=== PATIENT | male | born 1955 | race Caucasian/White ===

== ENCOUNTER 2019-02-14 08:42 | Day surgery (SDC) | payer BC, OTHER ==
[~2019-02-14] VITALS: Ht 177.8 cm; Wt 73.5 kg
[~2019-02-14 08:42] MED LIST: ASPI325T54 PO; BUPR300T34 PO; DILT240C82 PO; HYDR-643 PO; LIDOCAINE 1% MDV 20ML VIAL SQ PRN; LR 1,000 ML IV SCH; NITR0.4S14 SL; PRAV20TA2 PO
[2019-02-14] MEDS ORDERED: ASPIRIN 81 MG CHEW TABLET PO ONE (09:00)
[2019-02-14] MEDS ORDERED: LIDOCAINE 2% INJ 100 MG/5 ML SDV (FOR ANES.) As Ordered ONE (09:08)
[2019-02-14] MEDS ORDERED: ROCURONIUM BROMIDE 50 MG/5 ML VIAL As Ordered ONE (09:08)
[2019-02-14] MEDS ORDERED: PROPOFOL 200 MG/20 ML VIAL As Ordered ONE (09:08)
[2019-02-14] MEDS ORDERED: THROMBIN SOLN 5,000 UNITS VIAL As Ordered ONE (09:09)
[2019-02-14] MEDS ORDERED: CETACAINE SPRAY 5GM As Ordered ONE (09:09)
[2019-02-14] MEDS ORDERED: LIDOCAINE 1% SDV INJ 30 ML VIAL As Ordered ONE (09:09)
[2019-02-14] MEDS ORDERED: ONDANSETRON 4MG/2ML VIAL (J2405) As Ordered ONE (09:09)
[2019-02-14] MEDS ORDERED: EPINEPHrine 1MG/10ML SYRINGE 1.5IN As Ordered ONE (09:09)
[2019-02-14] MEDS ORDERED: dexameTHASONE 4 MG/ML 1ML VIAL (J1100) As Ordered ONE (09:09)
[2019-02-14] MEDS ORDERED: LIDOCAINE VISCOUS 2% SOLN 15ML UDC As Ordered ONE (09:10)
[2019-02-14] MEDS ORDERED: fentaNYL 250 MCG/5 ML INJECTION (J3010) As Ordered ONE (09:10)
[2019-02-14] MEDS ORDERED: MIDAZOLAM INJ 2 MG/2 ML VIAL (J2250) As Ordered ONE (09:10)
[2019-02-14] MEDS ORDERED: LIDOCAINE 1% MDV 20ML VIAL As Ordered ONE (09:11)
[2019-02-14 11:23] VITALS: BP 116/76
--- NOTE | 2019-02-14 11:25 | REP ---
Single view chest: 02/14/2019. Indication: Status post bronchoscopy. Comparison: None. Findings: Left upper lobe opacity along the medial margin is present. There is no pleural effusion or pneumothorax. Chronic interstitial fibrosis is present. Biapical scarring is suspected. The cardiac silhouette is unremarkable. Impression: Left upper lobe opacity status post bronchoscopy without pneumothorax or unexpected findings. Electronically Signed by Kendall Wilson DO 02/14/2019 11:16 A
--- NOTE | 2019-02-14 11:48 | ROOR ---
Patient Name: Philippe Marvin Procedure Date: 02/14/2019 9:48 AM Date of : 1955 Admit Type: Outpatient Age: 63 Room: Main OR Note Status: Finalized Attending MD: Tamiko Lua MD Procedure: Bronchoscopy Indications: Left upper lobe nodule Providers: Tamiko Lua MD (Doctor) Referring MD: 1. No Referring Physician 1. No Referring Physician, Admin. (Referring MD) Requesting Physician: Medicines: General Anesthesia, Cetacaine topical Complications: No immediate complications. Estimated blood loss: Minimal Procedure: Pre-Anesthesia Assessment: - Prior to the procedure, a History and Physical was performed, and patient medications and allergies were reviewed. The patient's tolerance of previous anesthesia was also reviewed. The risks and benefits of the procedure and the sedation options and risks were discussed with the patient. All questions were answered, and informed consent was obtained. Prior Anticoagulants: The patient has taken no previous anticoagulant or antiplatelet agents. ASA Grade Assessment: II - A patient with mild systemic disease. After reviewing the risks and benefits, the patient was deemed in satisfactory condition to undergo the procedure. The Bronchoscope was introduced through the mouth, via the endotracheal tube (the patient was intubated for the procedure) and advanced to the tracheobronchial tree of both lungs. The procedure was accomplished without difficulty. The patient tolerated the procedure well. Findings: Glidescope was used for intubation. During intubation there was an area of white/rushing asymmetric possible lesion on right side base of tongue in vallecula. The endotracheal tube is in good position. The visualized portion of the trachea is of normal caliber. The hossein is sharp. The tracheobronchial tree was examined to at least the first subsegmental level. Bronchial anatomy was normal; there are no endobronchial lesions, the bronchial mucosa showed some pitting and webbing. There were some thick white-yellow secretions in the right lower lobe and lesser degree in left lower lobe. Electromagnetic navigation bronchoscopy utilizing the [employer] system with iLogic upgrade was performed. The CT scan was used for planning purposes. A virtual bronchoscopic image was generated using the planning software and the hossein, left main bronchus hossein, left lower lobe basilar segment, right upper lobe, right middle lobe and right lower lobe basilar segment registration points were marked on the virtual image. The target in the apical-posterior segment of the left upper lobe was marked. A nodule 1 cm in size was found and a pathway was created. After a complete airway exam, the locatable guide/extended working channel was inserted and an automatic registration was performed by advancing the scope through the hossein, left main bronchus hossein, left lower lobe basilar segment, right upper lobe, right middle lobe and right lower lobe basilar segment. The navigation phase was then begun to locate the target lesion(s). Positioning was confirmed using fluoroscopy and off-center (in relation to the lesion) was confirmed using the Olympus radial probe US catheter. The locatable guide was removed from the extended working channel. Fluoroscopy guided transbronchial brushings of a nodule were obtained in the apical-posterior segment of the left upper lobe with a needle brush and sent for routine cytology. Transbronchial brushing technique was selected because the sampling site was not visible endoscopically. Transbronchial needle aspirations of a nodule were performed in the apical-posterior segment of the left upper lobe GenCut and sent for routine cytology. The procedure was guided by fluoroscopy. Transbronchial needle aspiration technique was selected because the sampling site was not visible endoscopically. Transbronchial biopsies of a nodule were performed in the apical-posterior segment of the left upper lobe using forceps and sent for histopathology examination. The procedure was guided by fluoroscopy. Transbronchial biopsy technique was selected because the sampling site was not visible endoscopically. Bronchoalveolar lavage was performed in the TATA apical posterior segments (B1 & B2) of the lung and sent for routine cytology. The return was bloody. Percepta brush testing was performed in right main stem bronchi and samples were packaged and sent for testing at outside facility. Impression: - Left upper lobe nodule - The airway examination was normal. - Electromagnetic navigation bronchoscopy was performed. - Transbronchial brushings were obtained. - A transbronchial needle aspiration was performed. - Transbronchial lung biopsies were performed. - Bronchoalveolar lavage was performed. Recommendation: - Follow up with bronchoscopist as previously scheduled. Attending Participation: I personally performed the entire procedure. Tamiko Lua MD 02/14/2019 11:47:37 AM Number of Addenda: 0 Note Initiated On: 02/14/2019 9:48 AM
--- NOTE | 2019-02-14 17:20 | ECGEPIP ---
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
== END 2019-02-14 11:55 | disposition home or self-care (01) ==
LOC: M SDC 08:42
PROVIDERS: ATTEND Internal Medicine Pulmonary Disease
DX: C34.12 Malignant neoplasm of upper lobe, left bronchus or lung (principal); C34.32 Malignant neoplasm of lower lobe, left bronchus or lung; I25.10 Atherosclerotic heart disease of native coronary artery without angina pectoris; I10 Essential (primary) hypertension; I25.2 Old myocardial infarction; J43.9 Emphysema, unspecified; E78.5 Hyperlipidemia, unspecified; F41.9 Anxiety disorder, unspecified; N40.0 Benign prostatic hyperplasia without lower urinary tract symptoms; M54.5 Low back pain; G89.29 Other chronic pain; B35.1 Tinea unguium; G43.909 Migraine, unspecified, not intractable, without status migrainosus; G47.33 Obstructive sleep apnea (adult) (pediatric); Z79.899 Other long term (current) drug therapy; Z79.82 Long term (current) use of aspirin; Z87.442 Personal history of urinary calculi; Z87.891 Personal history of nicotine dependence; Z95.5 Presence of coronary angioplasty implant and graft; Z92.3 Personal history of irradiation
CPT/HCPCS: 31623; 31624; 31627; 31628; 31629; 71045; 76000; 88104; 88108; 88173; 88305; 88313; 93005; J1100; J2250; J2405; J3010

== ENCOUNTER → 2019-03-09 | Outpatient (CLI) | payer BC, OTHER ==
[~2019-03-09] MED LIST changes: -BUPR300T34 PO; +BUPR300T92 PO; -LIDOCAINE 1% MDV 20ML VIAL SQ PRN; -LR 1,000 ML IV SCH
--- NOTE | 2019-03-12 09:45 | REP ---
INDICATION: Neoplasm of uncertain behavior PROCEDURE: CT neck with contrast. COMPARISON STUDIES: No prior similar studies FINDINGS: Rounded cervical chain lymph nodes seen in the posterior triangle on the right which are not enlarged, no evidence of lymphadenopathy. Oropharynx, nasopharynx, hypopharynx and larynx appear unremarkable. Thyroid glands appear unremarkable. Lung apices demonstrate cystic changes. In the area of the tongue, no definite mass lesion or abnormalities seen. Paranasal sinuses are clear. Dental hardware somewhat limits evaluation with metallic streak artifact. Paranasal sinuses and mastoid air cells are clear. Degenerative disc disease is moderate. There is no definite evidence of high-grade canal or foraminal stenosis although osteophytes narrow the foramen, greater on the right. Atherosclerotic changes seen of the head near the origin of the carotid bifurcation bilaterally. Common and internal carotid arteries are widely patent. IMPRESSION: 1. Rounded cervical chain lymph nodes seen on the right which are not enlarged. No evidence of lymphadenopathy. 2. Limited evaluation of the tongue reveals no specific lesion. 3. Degenerative changes as described. Electronically Signed by Sanket Rubio MD 03/12/2019 09:36 A
== END ==
LOC: M RAD 18:14
PROVIDERS: ATTEND Otolaryngology
DX: D37.02 Neoplasm of uncertain behavior of tongue (principal)

== ENCOUNTER → 2019-03-09 | Outpatient (CLI) | payer BC, OTHER ==
[~2019-03-09] MED LIST changes: +ISOVUE-370 76% 100ML VIAL (Q9967) As Ordered ONE
--- NOTE | 2019-03-12 02:02 | REP ---
Clinical: Malignancy. Technique: Axial contrast enhanced images from the thoracic inlet to the upper abdomen with coronal and sagittal re-formations using 100 ml Isovue 370 intravenous contrast material. Comparison: 01/10/2019. Findings: 1 cm mass along the posterior left upper lobe (image 23) is unchanged compared to prior examination. Diffuse chronic emphysematous disease and age-related interstitial changes are again noted. No further area of mass, nodule or consolidation. No pleural effusion. No pneumothorax. Tracheobronchial tree is patent. No obvious axillary, hilar, or mediastinal adenopathy is appreciated. Ascending thoracic aorta measures 4.4 cm maximal diameter without evidence for dissection and atherosclerotic changes to the aorta and coronary arteries are again noted. No cardiomegaly or pericardial effusion. Impression: 1. The 1 cm mass in the posterior left upper lobe is unchanged compared to 01/10/2019. 2. No adenopathy, further consolidation, nodule or mass lesion. Electronically Signed by Dean Valladares MD 03/12/2019 01:53 A
== END ==
LOC: M RAD 18:24
PROVIDERS: ATTEND Thoracic Surgery (Cardiothoracic Vascular Surgery)
DX: C34.12 Malignant neoplasm of upper lobe, left bronchus or lung (principal)
CPT/HCPCS: 71260; Q9967

== ENCOUNTER → 2019-03-29 | Outpatient (CLI) | payer BC, OTHER ==
[~2019-03-29] MED LIST changes: -ISOVUE-370 76% 100ML VIAL (Q9967) As Ordered ONE; +PROHANCE 279.3MG/ML 15ML VIAL (A9576) As Ordered ONE
[2019-03-29 14:14] LABS: HEMATOCRIT 42.4 % (42.0-52.0); HEMOGLOBIN 14.4 g/dl (13.5-17.5); MEAN CORPUSCULAR HEMOGLOBIN 31.4 pg (27.0-33.0); MEAN CORPUSCULAR VOLUME 92.6 fl (80.0-96.0); PLATELET COUNT, AUTOMATED 224 10^3/uL (150-450); RED BLOOD COUNT 4.58 10^6/uL (4.30-6.10)
[2019-03-29 14:25] LABS: INR 1.05; PROTHROMBIN TIME 13.4 SECONDS (11.8-14.0)
[2019-03-29 14:26] LABS: PARTIAL THROMBOPLASTIN TIME 24.3 SECONDS (25.0-38.4)
[2019-03-29 14:36] LABS: ABG BASE EXCESS 2.3 (-2.0-2.0); ABG HCO3 25.9 MEQ/L (22.0-26.0); ABG O2 SATURATION 94.8 % (95.0-99.0); ABG PARTIAL PRESSURE CO2 36.8 mmHg (35.0-45.0); ABG PARTIAL PRESSURE O2 72.1 mmHg (75.0-100.0); ABG STANDARD HCO3 26.5 MEQ/L (22.0-26.0); ABG pH (ARTERIAL) 7.465 UNITS (7.350-7.450)
[2019-03-29 14:39] LABS: CALCIUM LEVEL 9.5 MG/DL (8.8-10.2); CREATININE FOR GFR 1.44 MG/DL (0.70-1.30); GLOMERULAR FILTRATION RATE 52.9 (>49); POTASSIUM SERUM 3.9 MEQ/L (3.5-5.1)
[2019-03-29 15:17] LABS: AMORPHOUS SEDIMENT SMALL (NEGATIVE); APPEARANCE, URINE HAZY (CLEAR); BACTERIA, URINE AUTO NEGATIVE (NEGATIVE); BILIRUBIN, URINE AUTO NEGATIVE (NEGATIVE); BLOOD, URINE BLOOD NEGATIVE (NEGATIVE); COLOR, URINE YELLOW (YELLOW); GLUCOSE, URINE (UA) AUTO 1+ mg/dL (NEGATIVE); KETONE, URINE AUTO NEGATIVE (NEGATIVE); LEUKOCYTE ESTERASE, URINE AUTO NEGATIVE (NEGATIVE); MUCUS, URINE SMALL (NEGATIVE); NITRITE, URINE AUTO NEGATIVE (NEGATIVE); PROTEIN, URINE AUTO NEGATIVE (NEGATIVE); RBC, URINE AUTO 0 /HPF (0-3); SPECIFIC GRAVITY URINE AUTO 1.016 (1.002-1.035); SQUAMOUS EPITHELIAL CELL UR AU 0 /HPF (0-6); UROBILINOGEN, URINE AUTO 0.2 mg/dL (0.0-2.0); WBC, URINE AUTO 2 /HPF (0-3)
--- NOTE | 2019-03-29 15:19 | REP ---
CHEST, TWO VIEWS: COMPARISON: 02/14/2019 Two views of the chest are performed. No new infiltrate is seen. The lungs are unchanged in appearance. The heart is normal in size. Mediastinal silhouette is unchanged with mild calcification and tortuosity of the thoracic aorta. There are mild degenerative changes of the spine. IMPRESSION: No acute changes. Electronically Signed by Tyrone Ta MD 03/30/2019 12:35 P
--- NOTE | 2019-03-30 00:58 | ECGEPIP ---
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 NO SIGNIFICANT CHANGES Electronically Signed on 03-30-2019 0:58:03 EST by Juan Carmona
== END ==
LOC: M ADMPAT 13:47
PROVIDERS: ATTEND Thoracic Surgery (Cardiothoracic Vascular Surgery)
DX: C34.92 Malignant neoplasm of unspecified part of left bronchus or lung (principal)

== ENCOUNTER → 2019-03-30 | Outpatient (CLI) | payer BC, OTHER ==
[~2019-03-30] MED LIST changes: -PROHANCE 279.3MG/ML 15ML VIAL (A9576) As Ordered ONE
--- NOTE | 2019-03-30 15:23 | REPVR ---
PROCEDURE INFORMATION: Exam: MR Head Without and With Contrast Exam date and time: 03/30/2019 3:07 PM Age: 63 years old Clinical indication: Condition or disease; History of cancer (specify primary cancer site): ; Patient HX: HX lung CA h/a; Additional info: Mal lung CA, R/O mets TECHNIQUE: Imaging protocol: MR of the head without and with intravenous contrast. Contrast material: PROHANCE; Contrast volume: 15 ml; Contrast route: 22G ANGIO; COMPARISON: None available. FINDINGS: Brain: There is no extra-axial collection or intra-axial mass. Mild diffuse volume loss is within the range of normal for patient age. There are scattered foci of T2/FLAIR hyperintensity within the periventricular and subcortical white matter and substance of the narda, nonspecific but typically small-vessel ischemia in this age group. There is no diffusion restriction. There is no abnormal enhancement within the brain. Ventricles: Normal. No ventriculomegaly. Bones/joints: Unremarkable. Soft tissues: Unremarkable. Sinuses: Normal as visualized. No acute sinusitis. Mastoid air cells: Normal as visualized. No mastoid effusion. Orbits: Unremarkable. IMPRESSION: No acute findings. Electronically signed by: Lata Damon On 03/30/2019 15:24:11 PM
== END ==
LOC: M PLARAD 13:26
PROVIDERS: ATTEND Thoracic Surgery (Cardiothoracic Vascular Surgery)
DX: C34.92 Malignant neoplasm of unspecified part of left bronchus or lung (principal)

== ENCOUNTER 2019-04-06 06:51 | Inpatient (IN) | payer BC, OTHER ==
[2019-04-06] VITALS (7 sets, daily range): BP systolic 104–147; BP diastolic 61–100; O2SAT 98
[~2019-04-06] VITALS: Ht 177.8 cm; Wt 84.9 kg
[~2019-04-06 06:51] MED LIST changes: +LR 1,000 ML IV ONE; +MUPIROCIN 2% OINT 22 GM TUBE TOP ONE; +ceFAZolin SOD 2 GM in IV 1 EA IV ONE
[2019-04-06] MEDS ORDERED: CETACAINE SPRAY 5GM As Ordered ONE (06:58)
[2019-04-06] MEDS ORDERED: BUPIVACAINE HCL 0.5% 10 ML VIAL As Ordered ONE (06:58)
[2019-04-06] MEDS ORDERED: BUPIVACAINE LIPOSOME/PF 1.3% 20ML VIAL (13.3MG/ML)(EXPAREL)(C9290 PER1MG) As Ordered ONE (06:58)
[2019-04-06] MEDS ORDERED: ROCURONIUM BROMIDE 50 MG/5 ML VIAL As Ordered ONE ×3 (07:28→10:41)
[2019-04-06] MEDS ORDERED: LIDOCAINE 2% INJ 100 MG/5 ML SDV (FOR ANES.) As Ordered ONE (07:28)
[2019-04-06] MEDS ORDERED: propofoL 200 MG/20 ML VIAL As Ordered ONE (07:28)
[2019-04-06] MEDS ORDERED: METOCLOPRAMIDE INJ 10MG/2ML VIAL (J2765) As Ordered ONE (07:28)
[2019-04-06] MEDS ORDERED: fentaNYL 250 MCG/5 ML INJECTION (J3010) As Ordered ONE (07:28)
[2019-04-06] MEDS ORDERED: MIDAZOLAM INJ 2 MG/2 ML VIAL (J2250) As Ordered ONE ×2 (07:28→07:51)
[2019-04-06] MEDS ORDERED: dexameTHASONE 4 MG/ML 1ML VIAL (J1100) As Ordered ONE (07:28)
[2019-04-06] MEDS ORDERED: SUGAMMADEX SODIUM 500 MG/5 ML VIAL (BRIDION) As Ordered ONE (07:28)
[2019-04-06] MEDS ORDERED: ONDANSETRON 4MG/2ML VIAL (J2405) As Ordered ONE (07:28)
[2019-04-06] MEDS ORDERED: BUPIVACAINE HCL 0.25% 30 ML VIAL As Ordered ONE (07:28)
[2019-04-06] MEDS ORDERED: fentaNYL 100 MCG/2 ML INJECTION (J3010) As Ordered ONE (07:51)
[2019-04-06] MEDS ORDERED: LIDOCAINE 5% OINT 30 GM As Ordered ONE (08:52)
[2019-04-06] MEDS: MOM 30ML SUSPENSION UDC PO SCH (09:00)
[2019-04-06] MEDS: PANTOPRAZOLE 40MG TAB (PROTONIX) PO SCH (09:00)
[2019-04-06] MEDS ORDERED: LABETALOL HCL 100 MG/20 ML VIAL As Ordered ONE (09:39)
[2019-04-06] MEDS ORDERED: EPIDURAL/PCA KEYS XX PRN (09:45)
[2019-04-06] MEDS ORDERED: MIDAZOLAM INJ 2 MG/2 ML VIAL (J2250) IV PRN (09:45)
[2019-04-06] MEDS ORDERED: ONDANSETRON 4MG/2ML VIAL (J2405) IV PRN ×3 (09:45→12:45)
[2019-04-06] MEDS ORDERED: NALOXONE INJ 0.4 MG/1 ML VIAL (J2310) IV PRN (09:45)
[2019-04-06] MEDS ORDERED: METOCLOPRAMIDE INJ 10MG/2ML VIAL (J2765) IV PRN ×2 (09:45→12:45)
[2019-04-06] MEDS ORDERED: WALLBOXKEY XX PRN (09:45)
[2019-04-06] MEDS ORDERED: fentaNYL 100 MCG/2 ML INJECTION (J3010) IV PRN (09:45)
[2019-04-06] MEDS ORDERED: diphenhydrAMINE INJ 50MG/ML VIAL (J1200) IV PRN (09:45)
[2019-04-06] MEDS ORDERED: ePHEDrine SULFATE 25 MG/5 ML(5MG/ML) SYRINGE As Ordered ONE ×2 (09:55→10:10)
[2019-04-06] MEDS ORDERED: PHENYLephrine HCL 500 MCG/5 ML (100MCG/ML) SYRINGE (J2370) As Ordered ONE ×2 (10:10→12:03)
[2019-04-06] MEDS ORDERED: ACETAMINOPHEN 1000MG 100ML IV BTL (OFIRMEV) (J0131 PER 10MG) As Ordered ONE (12:07)
[2019-04-06] MEDS ORDERED: KCL 20MEQ IN D5/0.9%NACL 1000 ML As Ordered ONE (12:29)
[2019-04-06] MEDS ORDERED: NORCO, ANEXSIA 5/325MG TABLET (HYDROcodone/ACETAMINOPHEN) PO PRN (12:30)
[2019-04-06] MEDS ORDERED: ACETAMINOPHEN TAB 650MG DOSE (2X325MG) PO PRN (12:30)
[2019-04-06] MEDS ORDERED: BISACODYL 10 MG SUPP PR PRN (12:30)
[2019-04-06] MEDS ORDERED: LEVALBUTEROL 1.25 MG/0.5 ML CONCENTRATE NEB NEB PRN (12:30)
[2019-04-06] MEDS ORDERED: LR 1,000 ML IV SCH (12:45)
[2019-04-06] MEDS ORDERED: PERCOCET 5MG/325MG TAB PO PRN (12:45)
[2019-04-06] MEDS: FENTANYL/BUPIVACAINE/NACL BAG 250 ML EPIDURAL SCH (12:50)
[2019-04-06 12:55] LABS: ABG BASE EXCESS -4.1 (-2.0-2.0); ABG HCO3 21.2 MEQ/L (22.0-26.0); ABG O2 SATURATION 95.8 % (95.0-99.0); ABG PARTIAL PRESSURE CO2 39.8 mmHg (35.0-45.0); ABG PARTIAL PRESSURE O2 86.2 mmHg (75.0-100.0); ABG STANDARD HCO3 21.1 MEQ/L (22.0-26.0); ABG TOTAL CO2 22.5 MEQ/L (23.0-31.0); ABG pH (ARTERIAL) 7.345 UNITS (7.350-7.450)
[2019-04-06 12:59] LABS: BASO % 0.3 % (0.0-1.0); EOS % 0.2 % (0.0-3.0); HEMATOCRIT 39.6 % (42.0-52.0); LYMPH # 0.6 10^3/uL (1.5-5.0); LYMPH % 5.7 % (24.0-44.0); MEAN CORPUSCULAR HEMOGLOBIN 31.1 pg (27.0-33.0); MEAN CORPUSCULAR HGB CONC 32.8 g/dl (32.0-36.5); MEAN CORPUSCULAR VOLUME 94.7 fl (80.0-96.0); MONO # 0.3 10^3/uL (0.0-0.8); MONO % 2.4 % (0.0-5.0); NEUTROPHILS # 9.4 10^3/uL (1.5-8.5); NEUTROPHILS % 90.9 % (36.0-66.0); PLATELET COUNT, AUTOMATED 229 10^3/uL (150-450); RED BLOOD COUNT 4.18 10^6/uL (4.30-6.10); WHITE BLOOD COUNT 10.3 10^3/uL (4.0-10.0)
[2019-04-06] MEDS: KCL 20MEQ IN D5/NS 1000ML 1,000 ML IV SCH (13:00)
--- NOTE | 2019-04-06 13:02 | REP ---
Portable chest x-ray: Single view. History: Status post segmentectomy left lung. Comparison chest x-ray March 29, 2019. Comparison chest CT study 10 March 19, 2019. Findings: There are two left chest tubes in place both which terminate near the apex. There is mild subcutaneous emphysema along the left lateral chest wall in the extrathoracic soft tissues. There is no visible pneumothorax. There is subtle parenchymal opacity adjacent to the more medial of the two chest tubes in the apex of the left lung. Epidural catheter and EKG monitoring electrodes are seen. The right lung remains clear. Impression: Postoperative changes, two left chest tubes in place. Electronically Signed by Sen Jones MD 04/06/2019 12:53 P
[2019-04-06] MEDS: KETOROLAC 30 MG/ML VIAL (J1885) IV SCH ×2 (13:08→17:45)
[2019-04-06] MEDS: fentaNYL 100 MCG/2 ML INJECTION (J3010) IV PRN ×4 (13:08→13:31)
[2019-04-06 13:22] LABS: BLOOD UREA NITROGEN 20 MG/DL (7-18); CALCIUM LEVEL 7.5 MG/DL (8.8-10.2); CARBON DIOXIDE LEVEL 22 MEQ/L (21-32); CHLORIDE LEVEL 110 MEQ/L (98-107); CREATININE FOR GFR 1.26 MG/DL (0.70-1.30); GLOMERULAR FILTRATION RATE > 60.0 (>49); GLUCOSE, FASTING 110 MG/DL (70-100); POTASSIUM SERUM 4.7 MEQ/L (3.5-5.1); SODIUM LEVEL 139 MEQ/L (136-145)
[2019-04-06] MEDS: LEVALBUTEROL 1.25 MG/0.5 ML CONCENTRATE NEB NEB SCH ×2 (14:00→19:57)
--- NOTE | 2019-04-06 14:10 | RO ---
DATE OF PROCEDURE: 04/06/2019 PREPROCEDURE DIAGNOSIS: Small cell carcinoma left upper lobe, posterior segment, clinical stage IA. POSTPROCEDURE DIAGNOSIS: Small cell carcinoma left upper lobe, posterior segment, clinical stage IA. PROCEDURE: Posterior upper lobe segmentectomy, five level rib block, bronchoscopy and mediastinal lymphadenectomy. SURGEON: Eder Pruitt MD DIRECTOR OF CORPORATE SPONSORSHIPS: ANESTHESIA: FINDINGS: Bronchoscopy revealed a normal branching tracheobronchial tree. There were no endobronchial lesions. The thoracotomy showed a nearly incomplete fused fissure. I spent approximately an hour and a half trying to find the pulmonary artery within the fissure and posteriorly. I did get into the pulmonary artery posteriorly. Considering this was small cell carcinoma and a peripheral lesion and very small, 1 cm, and that he was committed to chemotherapy, II decided to undertake a large nonanatomic segmentectomy. Pathology showed no lymphangitic spread in the surrounding tissue to the tumor. I was therefore content to stop at a segmentectomy and not perform the lobectomy as we had already gotten into difficulties with pulmonary artery bleeding. PROCEDURE: Under satisfactory general anesthesia and a single lumen tube endotracheal intubation, bronchoscope was placed into the tracheobronchial tree. Each segment and subsegment were thoroughly inspected and there were no endobronchial lesions. There were some thick secretions, which were suction aspirated. The patient was then turned into the right lateral decubitus position and prepped and draped in the usual sterile fashion. Posterolateral thoracotomy incision was made. The latissimus dorsi was divided and a slip of serratus was divided. The chest was entered at the fifth intercostal space. Inspection revealed a very incomplete fissure, almost rudimentary. I therefore started to dissect the fissure, but to no avail as far as getting to the pulmonary artery. The posterior mediastinal pleura was then incised. The pulmonary artery was found without much difficulty and the remainder of the mediastinal pleura and adventitial tissue was removed from the pulmonary artery. Dissection was then started posteriorly to anteriorly to try to expose the fissure. Using the pulmonic scalpel with the inactive jaw towards the pulmonary artery, the lung tissue was divided. This was still rather awkward and difficult. After one pass of the underlying scalpel, a large amount of bleeding was encountered. This was oversewn eventually with #4-0 Prolene suture in a figure-of-8 fashion. This controlled the hemorrhage. At that point, the decision to move forward with a very difficulty interlobar dissection was reconsidered. The patient was not going to escape chemotherapy in any case because this is a small cell carcinoma, and the goal of the resection was to achieve local control. Therefore, a very large wedge segment of the posterior segment was undertaken leading the staler down towards the hilum. A large wedge resection along the segmental markings was completed without difficulty and the specimen was then taken to pathology. I personally took the specimen to pathology and the pathologist and myself reviewed peripheral cut sections and there was no evidence of lymphangitic spread or interstitial spread away from the tumor. The tumor was quite demarcated. The mediastinal pleura over the aorta and left pulmonary artery was then incised and there were found to be very few nodes, most on the pulmonary artery and these were removed and sent for pathological examination. There was an extensive lysis of adhesions in the cupula from his prior bullous disease. These were lysed sharply with the electrocautery to free the entire lung up for clear inspection. Two chest tubes were placed, one 24 curved and one 24 straight, posteriorly and anteriorly respectively. A five level rib block consisting of Exparel and Marcaine was then instilled. TISSEEL was applied to the dissection planes. The ribs were then reapproximated by use of #1 Prolene figure-of-8 pericostal sutures. The extrathoracic muscles by use of running #0 Vicryl sutures and the subcutaneous tissue by use of #3-0 Vicryl suture and the skin by use of #3-0 Monocryl subcuticular suture. The patient tolerated the procedure well and left the operating room in satisfactory condition for the recovery room. ESTIMATED BLOOD LOSS: 100 mL. MTDD
[2019-04-06] MEDS: ceFAZolin SOD 1 GM in D5W MINI-BAG PLUS 50 ML IV SCH (17:05)
[2019-04-06] MEDS: DOCUSATE SODIUM 100 MG CAP PO SCH (20:28)
[2019-04-06] MEDS: HEPARIN SOD (PORCINE) 5000 UNITS/ML VIAL (J1644 PER 1000UNITS) SC SCH (20:29)
[2019-04-06] MEDS ORDERED: MOM 30ML SUSPENSION UDC PO ONE (21:00)
[2019-04-07] VITALS: BP 126/79
[2019-04-07] MEDS: ceFAZolin SOD 1 GM in D5W MINI-BAG PLUS 50 ML IV SCH ×3 (00:13→17:14)
[2019-04-07] MEDS: KCL 20MEQ IN D5/NS 1000ML 1,000 ML IV SCH (00:14)
[2019-04-07] MEDS: KETOROLAC 30 MG/ML VIAL (J1885) IV SCH ×4 (00:14→17:40)
[2019-04-07 03:48] VITALS: O2SAT 98
[2019-04-07] MEDS: LEVALBUTEROL 1.25 MG/0.5 ML CONCENTRATE NEB NEB SCH ×4 (03:48→20:19)
[2019-04-07 04:00] VITALS: BP 125/79
[2019-04-07 05:10] LABS: BASO % 0.1 % (0.0-1.0); HEMATOCRIT 39.1 % (42.0-52.0); LYMPH # 0.8 10^3/uL (1.5-5.0); LYMPH % 6.9 % (24.0-44.0); MEAN CORPUSCULAR HEMOGLOBIN 31.3 pg (27.0-33.0); MEAN CORPUSCULAR HGB CONC 33.2 g/dl (32.0-36.5); MEAN CORPUSCULAR VOLUME 94.2 fl (80.0-96.0); MONO # 1.3 10^3/uL (0.0-0.8); NEUTROPHILS # 9.5 10^3/uL (1.5-8.5); NEUTROPHILS % 81.7 % (36.0-66.0); PLATELET COUNT, AUTOMATED 229 10^3/uL (150-450); RED BLOOD COUNT 4.15 10^6/uL (4.30-6.10); WHITE BLOOD COUNT 11.7 10^3/uL (4.0-10.0)
[2019-04-07 05:31] LABS: BLOOD UREA NITROGEN 18 MG/DL (7-18); CALCIUM LEVEL 8.2 MG/DL (8.8-10.2); CARBON DIOXIDE LEVEL 26 MEQ/L (21-32); CHLORIDE LEVEL 102 MEQ/L (98-107); CREATININE FOR GFR 1.12 MG/DL (0.70-1.30); GLOMERULAR FILTRATION RATE > 60.0 (>49); GLUCOSE, FASTING 115 MG/DL (70-100); POTASSIUM SERUM 4.3 MEQ/L (3.5-5.1); SODIUM LEVEL 135 MEQ/L (136-145)
[2019-04-07 05:39] LABS: ABG BASE EXCESS -0.6 (-2.0-2.0); ABG HCO3 22.6 MEQ/L (22.0-26.0); ABG O2 SATURATION 94.9 % (95.0-99.0); ABG PARTIAL PRESSURE O2 70.7 mmHg (75.0-100.0); ABG STANDARD HCO3 23.9 MEQ/L (22.0-26.0); ABG TOTAL CO2 23.6 MEQ/L (23.0-31.0); ABG pH (ARTERIAL) 7.454 UNITS (7.350-7.450)
--- NOTE | 2019-04-07 08:42 | REP ---
Clinical: Status post left pulmonary segmentectomy. Technique: PA and lateral. Comparison: 04/06/2019. Findings: Two left-sided chest tubes in stable position at the apex. Small left apical pneumothorax. Subtle scattered lower lobe air space disease cannot be excluded. No discrete focal consolidation. No obvious effusion. Mediastinum and cardiac silhouette are normal. Impression: 1. Postsurgical changes to the left hemithorax including small left pneumothorax. 2. Chronic changes versus a vague subtle bilateral air space disease. Electronically Signed by Dean Valladares MD 04/07/2019 08:33 A
[2019-04-07] MEDS: MOM 30ML SUSPENSION UDC PO SCH (09:49)
[2019-04-07] MEDS: ASPIRIN 325 MG TAB PO SCH (09:50)
[2019-04-07] MEDS: buPROPion **XL** TABLET 150MG (WELLBUTRIN XL) PO SCH (09:50)
[2019-04-07] MEDS: PANTOPRAZOLE 40MG TAB (PROTONIX) PO SCH (09:50)
[2019-04-07] MEDS: PRAVASTATIN 20 MG TAB PO SCH (09:51)
[2019-04-07] MEDS: DOCUSATE SODIUM 100 MG CAP PO SCH ×2 (09:51→20:18)
[2019-04-07] MEDS: HEPARIN SOD (PORCINE) 5000 UNITS/ML VIAL (J1644 PER 1000UNITS) SC SCH ×2 (09:52→20:19)
[2019-04-07] MEDS: FENTANYL/BUPIVACAINE/NACL BAG 250 ML EPIDURAL SCH (11:33)
[2019-04-07] MEDS ORDERED: FUROSEMIDE 40 MG/4 ML VIAL (J1940) IV ONE (13:00)
--- NOTE | 2019-04-07 18:05 | IPN ---
DATE: 04/07/2019 This is the first postoperative day for Mr. Marvin. He is having some trouble with pain control, but it does respond to boluses of the epidural. I have had a long discussion with him in regard to the operative findings yesterday and what we did yesterday. Final pathology is still pending. His vital signs show a maximum temperature (t-max) of 98.6 with a heart rate that ranges between 85 and 93 in a sinus rhythm, respiratory rate of 16 to 18 with the use of accessory muscles, who is 98% saturated on 2 liters nasal cannula and 91% saturated on room air. Blood pressure is ranging between 126/79 to 120/74. His intake and output the past 24 hours has been recorded as 4140 in and 1750 out for a positivity of 2390 mL. He has put out 320 mL from the chest tube and there is a small air leak. Urine output is 1330 mL. Weight today is 88.5 kg compared to 87.7 kg yesterday. PHYSICAL EXAMINATION: LUNGS: He has some inspiratory rales and crackles on the left side. Percussion note is full to the diaphragm. CARDIAC EXAM: Without murmurs, clicks, gallops or rubs. I cannot feel his point of maximum impulse (PMI). S1, S2 are normal. ABDOMEN: Soft, nontender. Bowel sounds positive. There is no hepatomegaly. No costovertebral angle tenderness. EXTREMITIES: Show no pretibial edema. No calf tenderness. No differential swelling of the upper extremities. SKIN: Warm, dry and perfused without cyanosis or mottling, including that of the nail beds and knees. NECK: Supple. There is no jugular venous distention. No subcutaneous emphysema. Trachea is midline. MOUTH: Shows his mucous membranes to be pink and moist. Lips and commissures without lesions. There is no thrush. EYES: Show his pupils to be equal and reactive. Extraocular motion intact. Sclerae anicteric. NEUROLOGIC: Shows II through XII intact with gross motor and gross sensation intact. Gait is not tested. PSYCHIATRIC: Shows him to be awake and alert, oriented times three with appropriate mood and affect and conversational. LABORATORY DATA His white count today is 11.7 with a hemoglobin and hematocrit of 13.0 and 39.1, essentially unchanged from yesterday with a platelet count of 229. Differential shows 81% neutrophils, 6% lymphocytes, 11% monocytes. There are no immature forms and toxic granulations. His electrolytes are essentially normal with a BUN and creatinine of 18 and 1.12, glucose 115, calcium 82. Blood gas this morning showed a pH of 7.45, pCO2 of 33, pO2 of 70 and a base excess of -0.06. His chest x-ray today shows his lung fully expanded to the chest wall. Costophrenic angles are sharp and there are no infiltrates. Chest tubes are in good place. There are no posterior infiltrates on the lateral film. IMPRESSION: 1. Small cell carcinoma, status post segmentectomy and mediastinal lymphadenectomy. 2. Hypertension. PLAN/DISCUSSION: I will keep his chest tube on suction today. I will transfer him the progressive care unit (PCU) today. I will also diurese him.
[2019-04-07 20:00] VITALS: BP 144/82
[2019-04-08] VITALS (11 sets, daily range): BP systolic 117–138; BP diastolic 62–80
[2019-04-08] MEDS: KETOROLAC 30 MG/ML VIAL (J1885) IV SCH ×5 (00:11→23:27)
[2019-04-08] MEDS: ceFAZolin SOD 1 GM in D5W MINI-BAG PLUS 50 ML IV SCH ×2 (00:17→09:15)
[2019-04-08] MEDS: LEVALBUTEROL 1.25 MG/0.5 ML CONCENTRATE NEB NEB SCH ×4 (01:21→19:34)
[2019-04-08 04:35] LABS: BASO % 0.3 % (0.0-1.0); EOS # 0.1 10^3/uL (0.0-0.5); EOS % 0.9 % (0.0-3.0); HEMOGLOBIN 12.5 g/dl (13.5-17.5); LYMPH # 1.5 10^3/uL (1.5-5.0); LYMPH % 15.8 % (24.0-44.0); MEAN CORPUSCULAR HEMOGLOBIN 31.3 pg (27.0-33.0); MEAN CORPUSCULAR HGB CONC 32.9 g/dl (32.0-36.5); MONO # 0.8 10^3/uL (0.0-0.8); MONO % 8.2 % (0.0-5.0); NEUTROPHILS # 6.8 10^3/uL (1.5-8.5); NEUTROPHILS % 74.1 % (36.0-66.0); PLATELET COUNT, AUTOMATED 204 10^3/uL (150-450); WHITE BLOOD COUNT 9.2 10^3/uL (4.0-10.0)
[2019-04-08 04:59] LABS: BLOOD UREA NITROGEN 19 MG/DL (7-18); CALCIUM LEVEL 7.9 MG/DL (8.8-10.2); CARBON DIOXIDE LEVEL 28 MEQ/L (21-32); CHLORIDE LEVEL 104 MEQ/L (98-107); CREATININE FOR GFR 1.06 MG/DL (0.70-1.30); GLOMERULAR FILTRATION RATE > 60.0 (>49); GLUCOSE, FASTING 99 MG/DL (70-100); SODIUM LEVEL 137 MEQ/L (136-145)
[2019-04-08] MEDS: FENTANYL/BUPIVACAINE/NACL BAG 250 ML EPIDURAL SCH (06:39)
--- NOTE | 2019-04-08 08:18 | REP ---
Clinical: Status post left pulmonary segmentectomy. Technique: PA and lateral. Comparison: 04/07/2019. Findings: Two left-sided chest tubes are in stable position. Small left apical pneumothorax along with bilateral infiltrates remain essentially unchanged. No obvious new acute process identified. Impression: No significant change from prior examination. Electronically Signed by Dean Valladares MD 04/08/2019 08:09 A
[2019-04-08] MEDS: buPROPion **XL** TABLET 150MG (WELLBUTRIN XL) PO SCH (09:16)
[2019-04-08] MEDS: MOM 30ML SUSPENSION UDC PO SCH (09:16)
[2019-04-08] MEDS: ASPIRIN 325 MG TAB PO SCH (09:16)
[2019-04-08] MEDS: DOCUSATE SODIUM 100 MG CAP PO SCH ×2 (09:16→19:17)
[2019-04-08] MEDS: PRAVASTATIN 20 MG TAB PO SCH (09:17)
[2019-04-08] MEDS: PANTOPRAZOLE 40MG TAB (PROTONIX) PO SCH (09:17)
[2019-04-08] MEDS: HEPARIN SOD (PORCINE) 5000 UNITS/ML VIAL (J1644 PER 1000UNITS) SC SCH ×2 (09:21→19:17)
[2019-04-08] MEDS ORDERED: NALOXONE INJ 0.4 MG/1 ML VIAL (J2310) IV PRN (10:00)
[2019-04-08] MEDS ORDERED: EPIDURAL/PCA KEYS XX PRN (10:00)
[2019-04-08] MEDS ORDERED: WALLBOXKEY XX PRN (10:00)
[2019-04-08] MEDS ORDERED: METOCLOPRAMIDE INJ 10MG/2ML VIAL (J2765) IV PRN (10:00)
[2019-04-08] MEDS ORDERED: diphenhydrAMINE INJ 50MG/ML VIAL (J1200) IV PRN (10:00)
[2019-04-08] MEDS ORDERED: ONDANSETRON 4MG/2ML VIAL (J2405) IV PRN (10:00)
[2019-04-08] MEDS ORDERED: FUROSEMIDE 40 MG/4 ML VIAL (J1940) IV ONE (11:00)
[2019-04-08] MEDS ORDERED: FENTANYL/BUPIVACAINE BAG 250 ML EPIDURAL SCH (11:00)
--- NOTE | 2019-04-08 11:57 | IPN ---
DATE: 04/08/2019 I was called last night around 4 o'clock by the nursing staff regarding a painful lump in the anterior-inferior chest. Nurse described it as a goose egg, which was very painful. I, therefore, came in only to find a normal costal margin. Pain is secondary to incisional dermatomal pain. Anesthesia gave him a few boluses of the epidural last night, which helped, and today I am going to double strength the epidural. His vital signs show a maximum temperature (T max) of 99.0 with a heart rate that ranges between 74 and 64 and is sinus rhythm, respiratory rate of 16 to 20 without the use of accessory muscles who is 90% saturated on three liters nasal cannula and whose blood pressure is ranging between 138/74 to 135/74. His intake and output over the past 24 hours has been recorded as 2590 in and 5 out for a positivity of 500 mL. He put out 1875 mL yesterday in response to Lasix dose. He has put out 200 mL in the chest tube, and there is no air leak. Weight today is pending. On physical examination, he has some bibasilar crackles on either side during inspiration. Percussion note is full to the diaphragm. Cardiac exam is without murmurs, clicks, gallops or rubs. I cannot feel his point of maximum impulse (PMI). S1, S2 are normal. Abdomen is nontender but firm and distended and tympanitic. He has not yet had a bowel movement. There is no hepatomegaly. No costovertebral angle tenderness. Extremities show no pretibial edema. No calf tenderness. No differential swelling of the upper extremities. His skin is warm, dry and perfused without cyanosis or mottling, including that of the nail beds and the knees. Neck is supple. There is no jugular venous distention, no subcutaneous emphysema. Trachea is midline. Mouth shows his mucous membranes to be pink and moist. Lips and commissures without lesions. There is no thrush. Eyes show his pupils to be equal and reactive. Extraocular motions intact. Sclerae anicteric. Neurologic shows II-XII intact along with gross motor and gross sensation intact. Gait is not tested. Psychiatric shows him to be awake and alert, oriented times three with appropriate mood and affect and conversational. His white count today is 9.2 down from 11.7 yesterday with a hemoglobin and hematocrit of 12.5 and 38.0, unchanged from yesterday with a platelet count of 204 and stable and a differential of 74% neutrophils, 15% lymphocytes, 8% monocytes. There are no immature forms. No toxic granulations. His electrolytes are normal with a BUN and creatinine of 19 and 1.06, a glucose of 99, and a calcium of 7.9. He remains on Toradol. His chest x-ray today shows his lung fully expanded to the chest wall. There are some atelectatic changes on both sides, I suspect secondary to shallow breathing secondary to his pain. It is also consistent with his physical findings of bibasilar rales. I see no infiltrates per se. IMPRESSION: 1. Small cell carcinoma, stage IA, final pathology pending. 2. Postoperative day #2, status post segmentectomy and mediastinal lymphadenectomy. 3. Hypertension. 4. Inadequate pain control. PLAN AND DISCUSSION: As noted above, the anesthesia service is going to double strength his epidural. The worse case scenario is that we may need to replace the epidural. I will take his chest tubes off suction today and gently diurese him.
[2019-04-08] MEDS: PERCOCET 5MG/325MG TAB PO PRN ×3 (15:10→23:28)
[2019-04-09] VITALS: BP 125/74
[2019-04-09] MEDS: PERCOCET 5MG/325MG TAB PO PRN ×5 (03:28→20:19)
[2019-04-09] MEDS: LEVALBUTEROL 1.25 MG/0.5 ML CONCENTRATE NEB NEB SCH ×4 (03:29→21:48)
[2019-04-09 04:00] VITALS: BP 117/82
[2019-04-09 05:09] LABS: BASO % 0.4 % (0.0-1.0); EOS # 0.2 10^3/uL (0.0-0.5); EOS % 2.3 % (0.0-3.0); HEMOGLOBIN 12.8 g/dl (13.5-17.5); LYMPH # 1.5 10^3/uL (1.5-5.0); LYMPH % 18.9 % (24.0-44.0); MEAN CORPUSCULAR HEMOGLOBIN 30.5 pg (27.0-33.0); MEAN CORPUSCULAR VOLUME 95.5 fl (80.0-96.0); MONO # 0.6 10^3/uL (0.0-0.8); MONO % 7.4 % (0.0-5.0); NEUTROPHILS # 5.7 10^3/uL (1.5-8.5); NEUTROPHILS % 70.5 % (36.0-66.0); PLATELET COUNT, AUTOMATED 206 10^3/uL (150-450); RED BLOOD COUNT 4.19 10^6/uL (4.30-6.10); WHITE BLOOD COUNT 8.1 10^3/uL (4.0-10.0)
[2019-04-09 05:26] LABS: BLOOD UREA NITROGEN 20 MG/DL (7-18); CALCIUM LEVEL 8.1 MG/DL (8.8-10.2); CARBON DIOXIDE LEVEL 25 MEQ/L (21-32); CHLORIDE LEVEL 105 MEQ/L (98-107); CREATININE FOR GFR 0.89 MG/DL (0.70-1.30); GLOMERULAR FILTRATION RATE > 60.0 (>49); GLUCOSE, FASTING 99 MG/DL (70-100); POTASSIUM SERUM 4.2 MEQ/L (3.5-5.1); SODIUM LEVEL 137 MEQ/L (136-145)
[2019-04-09] MEDS: KETOROLAC 30 MG/ML VIAL (J1885) IV SCH ×3 (06:16→17:53)
[2019-04-09 08:00] VITALS: BP 124/74
--- NOTE | 2019-04-09 08:26 | REP ---
Clinical: Status post left pulmonary segmentectomy. Technique: PA and lateral. Comparison: 04/08/2019. Findings: Two left-sided chest tubes are in stable position. Small left apical pneumothorax again noted. Scattered bilateral opacities are relatively similar to prior examination. No obvious new acute process identified. Impression: 1. Stable scattered bilateral opacities. 2. Small left apical pneumothorax again noted. Electronically Signed by Dean Valladares MD 04/09/2019 08:17 A
[2019-04-09] MEDS: MOM 30ML SUSPENSION UDC PO SCH (09:04)
[2019-04-09] MEDS: buPROPion **XL** TABLET 150MG (WELLBUTRIN XL) PO SCH (09:05)
[2019-04-09] MEDS: ASPIRIN 325 MG TAB PO SCH (09:05)
[2019-04-09] MEDS: PANTOPRAZOLE 40MG TAB (PROTONIX) PO SCH (09:05)
[2019-04-09] MEDS: DOCUSATE SODIUM 100 MG CAP PO SCH ×2 (09:05→20:19)
[2019-04-09] MEDS: HEPARIN SOD (PORCINE) 5000 UNITS/ML VIAL (J1644 PER 1000UNITS) SC SCH ×2 (09:05→20:20)
[2019-04-09] MEDS: PRAVASTATIN 20 MG TAB PO SCH (09:06)
--- NOTE | 2019-04-09 09:36 | IPN ---
DATE: 04/09/2019 This is now the third postoperative day for Mr. Marvin. He is doing much better in regard to pain control after having the epidural doubly concentrated. He is also being supplemented with by mouth oxycodone. His vital signs show a maximum temperature (T max) of 98.2 with a heart rate that ranges between 69 and 74 in a sinus rhythm, a respiratory rate of 18 to 24 without the use of accessory muscles who is 90-95% saturated on 5 liters nasal cannula and whose blood pressure is ranging between 125/74 to 116/82. His intake and output the past 24 hours has been recorded as 2280 in and 1680 out for a positivity of 600 mL. He has put 245 mL out the chest tube. His weight today is 92.6 kg compared to 88.5 kg yesterday. There is no air leak. On physical examination, he has bibasilar rales which are more prominent on the right side rather than the left side during inspiration. Percussion note is full to the diaphragm. Cardiac exam is without murmurs, clicks, gallops or rubs. I cannot feel his point of maximum impulse (PMI). S1, S2 are normal. Abdomen is firm, nontender, and tympanitic. Bowel sounds are positive. He did have a bowel movement yesterday. Extremities show no pretibial edema. No calf tenderness. No differential swelling of the upper extremities. Skin is warm, dry and perfused. Without cyanosis or mottling, including that of the nail beds and the knees. Neck is supple. There is no jugular venous distention. No subcutaneous emphysema. Trachea is midline. Mouth shows his mucous membranes to be pink and moist. Lips and commissures without lesions. There is no thrush. Eyes show his pupils to be equal and reactive. Extraocular movement intact. Sclerae anicteric. Neurologic shows II-XII intact along with gross motor and gross sensation intact. Gait is not tested. Psychiatric shows him to be awake and alert, oriented times three with appropriate mood and affect and conversational. His white count today is 8.1 with hemoglobin and hematocrit of 12.8 and 40.0, essentially unchanged from yesterday, with a platelet count of 206. Differential shows 70% neutrophils, 18% lymphocytes, 4% monocytes. There are no immature forms and no toxic granulations. His electrolytes are normal with a BUN and creatinine of 20 and 0.89, glucose of 99, and a calcium of 8.1. His chest x-ray today shows his lung fully expanded to the chest wall. He does have an atelectatic infiltrative process on the right side. Costophrenic angles are sharp. I think this represents atelectasis from his problematic pain control yesterday. It looks to be unchanged since yesterday. IMPRESSION: 1. Small cell carcinoma, stage IA, final pathology pending. 2. Postoperative day #3, status post segmentectomy and mediastinal lymphadenectomy. 3. Hypertension. 4. Inadequate pain control, improved. PLAN AND DISCUSSION: I will take him off suction today. Will continue to do lung expansion therapy. Will bolus his epidural as needed.
[2019-04-09] MEDS: FENTANYL/BUPIVACAINE BAG 250 ML EPIDURAL SCH (10:28)
[2019-04-09 11:19] VITALS: BP 136/96
[2019-04-09 16:00] VITALS: BP 126/74
[2019-04-09 20:00] VITALS: BP 142/88
[2019-04-10] VITALS: BP 128/82
[2019-04-10] MEDS: KETOROLAC 30 MG/ML VIAL (J1885) IV SCH ×5 (00:10→23:29)
[2019-04-10] MEDS: PERCOCET 5MG/325MG TAB PO PRN ×3 (01:53→17:01)
[2019-04-10] MEDS: LEVALBUTEROL 1.25 MG/0.5 ML CONCENTRATE NEB NEB SCH ×4 (01:55→20:37)
[2019-04-10 04:00] VITALS: BP 129/76
[2019-04-10 05:50] LABS: BASO % 0.5 % (0.0-1.0); EOS # 0.2 10^3/uL (0.0-0.5); EOS % 2.8 % (0.0-3.0); HEMATOCRIT 37.5 % (42.0-52.0); HEMOGLOBIN 12.1 g/dl (13.5-17.5); LYMPH # 0.8 10^3/uL (1.5-5.0); LYMPH % 10.6 % (24.0-44.0); MEAN CORPUSCULAR HGB CONC 32.3 g/dl (32.0-36.5); MEAN CORPUSCULAR VOLUME 96.2 fl (80.0-96.0); MONO # 0.6 10^3/uL (0.0-0.8); MONO % 7.6 % (0.0-5.0); NEUTROPHILS # 6.2 10^3/uL (1.5-8.5); NEUTROPHILS % 78.4 % (36.0-66.0); PLATELET COUNT, AUTOMATED 199 10^3/uL (150-450); WHITE BLOOD COUNT 7.9 10^3/uL (4.0-10.0)
[2019-04-10 06:14] LABS: BLOOD UREA NITROGEN 25 MG/DL (7-18); CALCIUM LEVEL 7.9 MG/DL (8.8-10.2); CARBON DIOXIDE LEVEL 25 MEQ/L (21-32); CHLORIDE LEVEL 101 MEQ/L (98-107); CREATININE FOR GFR 0.86 MG/DL (0.70-1.30); GLOMERULAR FILTRATION RATE > 60.0 (>49); GLUCOSE, FASTING 89 MG/DL (70-100); POTASSIUM SERUM 4.6 MEQ/L (3.5-5.1); SODIUM LEVEL 132 MEQ/L (136-145)
[2019-04-10 08:00] VITALS: BP 130/72
[2019-04-10] MEDS: MOM 30ML SUSPENSION UDC PO SCH (08:06)
[2019-04-10] MEDS: ASPIRIN 325 MG TAB PO SCH (08:07)
[2019-04-10] MEDS: HEPARIN SOD (PORCINE) 5000 UNITS/ML VIAL (J1644 PER 1000UNITS) SC SCH ×2 (08:07→20:36)
[2019-04-10] MEDS: PANTOPRAZOLE 40MG TAB (PROTONIX) PO SCH (08:09)
[2019-04-10] MEDS: buPROPion **XL** TABLET 150MG (WELLBUTRIN XL) PO SCH (08:09)
[2019-04-10] MEDS: DOCUSATE SODIUM 100 MG CAP PO SCH ×2 (08:09→20:32)
[2019-04-10] MEDS: PRAVASTATIN 20 MG TAB PO SCH (08:10)
--- NOTE | 2019-04-10 08:22 | REP ---
Clinical: Status post left pulmonary segmentectomy. Technique: PA and lateral. Comparison: 04/09/2019. Findings: Two left-sided chest tubes extend to the apex and a small left apical pneumothorax is again identified and unchanged. Bilateral air space disease is again noted and unchanged. Mediastinal opacities remain stable. Impression: 1. No significant change from prior examination. 2. Continued small left apical pneumothorax. 3. Stable diffuse bilateral air space disease and mediastinal opacities. Electronically Signed by Dean Valladares MD 04/10/2019 08:15 A
[2019-04-10] MEDS: FENTANYL/BUPIVACAINE BAG 250 ML EPIDURAL SCH (09:05)
[2019-04-10] MEDS ORDERED: FUROSEMIDE 40 MG/4 ML VIAL (J1940) IV ONE (10:30)
--- NOTE | 2019-04-10 10:59 | IPN ---
DATE: 04/10/2019 This is now the fourth postoperative day for Mr. Marvin. His pain is being a little bit better controlled with increased boluses of the epidural. His vital signs show a maximum temperature (t-max) of 98.0 with a heart rate that ranges between 69 and 71 in a sinus rhythm, respiratory rate of 18 to 20 without the use of accessory muscles, who is 94% saturated on 3 liters nasal cannula, and his blood pressure is ranging between 130/72 to 142/88. His intake and output the past 24 hours has been recorded as 1514 in and 710 out for a positivity of 804 mL. He has put 60 mL out of the chest tube. There is no air leak. His weight today is 88.7 kg, compared to 88.6 kg yesterday. PHYSICAL EXAMINATION: LUNGS: The crackles in the right mid chest are improved. He has some scattered rhonchi, most of which clears with coughing. Percussion note is full to the diaphragm. CARDIAC EXAM: Without murmurs, clicks, gallops or rubs. I cannot feel his point of maximum impulse (PMI). S1, S2 are normal. ABDOMEN: Soft, nontender. Bowel sounds positive. There is no hepatomegaly. No costovertebral angle tenderness. EXTREMITIES: Show no pretibial edema. No calf tenderness. No differential swelling of the upper extremities. SKIN: Warm, dry and perfused without cyanosis or mottling, including that of the nail beds and knees. NECK: Supple. There is no jugular venous distention. No subcutaneous emphysema. Trachea is midline. MOUTH: Shows his mucous membranes to be pink and moist. Lips and commissures without lesions. There is no thrush. EYES: Show his pupils to be equal and reactive. Extraocular motion intact. Sclerae anicteric. NEUROLOGIC: Shows II through XII intact with gross motor and gross sensation intact. Gait is not tested. PSYCHIATRIC: Shows him to be awake and alert, oriented times three with appropriate mood and affect and conversational. LABORATORY DATA: His white count today is 7.9 with a hemoglobin and hematocrit of 12.1 and 37.5, respectively. Platelet count is 199 and stable. Differential shows 78% neutrophils, 10% lymphocytes, 7% monocytes. There are no immature forms and no toxic granulations. His chemistries showed normal electrolytes with a marginally low sodium of 132. BUN and creatinine are 25 and 0.86, respectively, with a calcium of 7.0 and a glucose of 89. Chest x-ray shows a small apical cap at the top of the lung on the left side. The right infiltrate looks maybe a little bit more coarse today. Costophrenic angles are sharp. IMPRESSION: 1. Small cell carcinoma, stage I A, final pathology showing all mediastinal nodes negative. 2. Postoperative day #4 status post segmentectomy and mediastinal lymphadenectomy. 3. Hypertension. 4. Inadequate pain control, improved. PLAN/DISCUSSION: I will discontinue his chest tubes today. I will again diurese him today. I am going to continue the epidural as this is only postoperative day #4 and he has had such significant pain problems with pain control.
[2019-04-10 12:00] VITALS: BP 116/76
[2019-04-10 16:00] VITALS: BP 128/78
[2019-04-10 20:00] VITALS: BP 120/64
[2019-04-11] VITALS: BP 150/81
[2019-04-11] MEDS: PERCOCET 5MG/325MG TAB PO PRN ×5 (01:57→19:36)
[2019-04-11] MEDS: LEVALBUTEROL 1.25 MG/0.5 ML CONCENTRATE NEB NEB SCH ×4 (02:17→20:25)
[2019-04-11 04:00] VITALS: BP 126/72
[2019-04-11] MEDS: FENTANYL/BUPIVACAINE BAG 250 ML EPIDURAL SCH (04:27)
[2019-04-11] MEDS: KETOROLAC 30 MG/ML VIAL (J1885) IV SCH (05:21)
[2019-04-11 05:41] LABS: BASO % 0.3 % (0.0-1.0); EOS # 0.2 10^3/uL (0.0-0.5); EOS % 3.4 % (0.0-3.0); HEMATOCRIT 33.3 % (42.0-52.0); HEMOGLOBIN 11.2 g/dl (13.5-17.5); LYMPH # 0.9 10^3/uL (1.5-5.0); LYMPH % 13.9 % (24.0-44.0); MEAN CORPUSCULAR HEMOGLOBIN 31.7 pg (27.0-33.0); MEAN CORPUSCULAR HGB CONC 33.6 g/dl (32.0-36.5); MEAN CORPUSCULAR VOLUME 94.3 fl (80.0-96.0); MONO # 0.6 10^3/uL (0.0-0.8); MONO % 8.2 % (0.0-5.0); NEUTROPHILS # 4.9 10^3/uL (1.5-8.5); NEUTROPHILS % 73.9 % (36.0-66.0); PLATELET COUNT, AUTOMATED 198 10^3/uL (150-450); RED BLOOD COUNT 3.53 10^6/uL (4.30-6.10); WHITE BLOOD COUNT 6.7 10^3/uL (4.0-10.0)
[2019-04-11 05:59] LABS: BLOOD UREA NITROGEN 23 MG/DL (7-18); CALCIUM LEVEL 7.4 MG/DL (8.8-10.2); CARBON DIOXIDE LEVEL 27 MEQ/L (21-32); CHLORIDE LEVEL 100 MEQ/L (98-107); CREATININE FOR GFR 1.02 MG/DL (0.70-1.30); GLOMERULAR FILTRATION RATE > 60.0 (>49); GLUCOSE, FASTING 121 MG/DL (70-100); POTASSIUM SERUM 4.1 MEQ/L (3.5-5.1); SODIUM LEVEL 134 MEQ/L (136-145)
[2019-04-11 08:00] VITALS: BP 133/82
[2019-04-11] MEDS: MOM 30ML SUSPENSION UDC PO SCH (09:00)
--- NOTE | 2019-04-11 09:16 | REP ---
Clinical: Status post left pulmonary segmentectomy. Technique: PA and lateral. Comparison: 04/10/2019. Findings: Chest tubes have been removed. Small left apical pneumothorax is unchanged. Diffuse bilateral pleuroparenchymal changes are relatively stable. No obvious effusion. Mediastinum and cardiac silhouette stable. Skeletal structures are intact. Impression: Chest tubes removed. Stable small left apical pneumothorax and diffuse pleuroparenchymal changes. No new acute process. Electronically Signed by Dean Valladares MD 04/11/2019 09:07 A
[2019-04-11] MEDS: ASPIRIN 325 MG TAB PO SCH (09:36)
[2019-04-11] MEDS: buPROPion **XL** TABLET 150MG (WELLBUTRIN XL) PO SCH (09:37)
[2019-04-11] MEDS: PANTOPRAZOLE 40MG TAB (PROTONIX) PO SCH (09:38)
[2019-04-11] MEDS: DOCUSATE SODIUM 100 MG CAP PO SCH ×2 (09:38→20:13)
[2019-04-11] MEDS: PRAVASTATIN 20 MG TAB PO SCH (09:39)
[2019-04-11] MEDS: HEPARIN SOD (PORCINE) 5000 UNITS/ML VIAL (J1644 PER 1000UNITS) SC SCH ×2 (09:39→21:00)
[2019-04-11] MEDS ORDERED: FUROSEMIDE 40 MG/4 ML VIAL (J1940) IV ONE (10:30)
--- NOTE | 2019-04-11 10:46 | IPN ---
DATE: 04/11/2019 This is now the fifth postoperative day for Mr. Marvin. I took his chest tubes out yesterday and his lung is fully expanded to the chest wall. I did not wean his epidural yesterday as he still was having pain control issues. We will try to wean it today. His vital signs show a maximum temperature (t-max) of 98.9 with a heart rate that ranges between 75 and 100 in a sinus rhythm, respiratory rate of 18 to 20 without the use of accessory muscles, who is 95% saturated on 3 liters nasal cannula, and his blood pressure is ranging between 130/82 to 126/72. His intake and output over the past 24 hours has been recorded as 1920 and 1615 out for a positivity of 305 mL. He weighs 87.2 kg today compared to 88.7 kg yesterday. PHYSICAL EXAMINATION: LUNGS: His lungs show bilateral crackles in the mid lung henderson, particularly on the right side during inspiration. Percussion note is full to the diaphragm. CARDIAC EXAM: Without murmurs, clicks, gallops or rubs. I cannot feel his point of maximum impulse (PMI). S1, S2 are normal. ABDOMEN: Soft, nontender. Bowel sounds positive. Firm and tympanitic, but he has had a bowel movement. EXTREMITIES: Show 1+ to 2+ pretibial edema, which is a change from yesterday. There is no differential swelling of the upper extremities. SKIN: Warm, dry and perfused without cyanosis or mottling, including that of the nail beds and knees. NECK: Supple. There is no jugular venous distention. No subcutaneous emphysema. Trachea is midline. MOUTH: Shows his mucous membranes to be pink and moist. Lips and commissures without lesions. There is no thrush. EYES: Show his pupils to be equal and reactive. Extraocular motion intact. Sclerae anicteric. NEUROLOGIC: Shows II through XII intact with gross motor and gross sensation intact. Gait is not tested. PSYCHIATRIC: Shows him to be awake and alert, oriented times three with appropriate mood and affect and conversational. LABORATORY DATA: White count is 6.7, hemoglobin and hematocrit of 11.2 and 33.3. Platelet count is 198. Differential shows 73% neutrophils, 13% lymphocytes, 8% monocytes. There are no immature forms and no toxic granulations. Chemistries today show a marginally low sodium of 134, but improved from 132. BUN and creatinine are 22 and 1.02, respectively, with a glucose of 121 and calcium of 7.4. Chest x-ray today again shows the same infiltrate in the right mid lung field. It looks a little worse today than it did yesterday. Costophrenic angles are sharp. Left lung is fully expanded to the chest wall except for a small apical air space, which was there yesterday prior to taking the tubes out. IMPRESSION: 1. Postoperative day #5 status post posterior segmentectomy and mediastinal lymphadenectomy. 2. Small cell carcinoma, stage I A, final pathology showing all mediastinal nodes negative. 3. Hypertension. 4. Inadequate pain control, improved. 5. Developing right mid field infiltrate. PLAN/DISCUSSION: I will again diurese him today. I will attempt a sputum culture. We are going to start to wean his epidural and give oral pain control during the wean. We will discontinue his Potts. I am on the fence as to whether to start him on antibiotics at this point as he has no other symptoms of lung infiltrative process.
[2019-04-11 12:00] VITALS: BP 124/61
[2019-04-11 16:00] VITALS: BP 118/72
[2019-04-11 20:00] VITALS: BP 128/75
[2019-04-12] VITALS: BP 133/70
[2019-04-12] MEDS: PERCOCET 5MG/325MG TAB PO PRN ×4 (00:37→13:41)
[2019-04-12] MEDS: LEVALBUTEROL 1.25 MG/0.5 ML CONCENTRATE NEB NEB SCH ×2 (01:31→08:12)
[2019-04-12 04:00] VITALS: BP 134/80
[2019-04-12 05:32] LABS: BASO % 0.3 % (0.0-1.0); EOS # 0.2 10^3/uL (0.0-0.5); EOS % 3.2 % (0.0-3.0); HEMATOCRIT 33.5 % (42.0-52.0); HEMOGLOBIN 11.3 g/dl (13.5-17.5); LYMPH # 0.8 10^3/uL (1.5-5.0); LYMPH % 11.1 % (24.0-44.0); MEAN CORPUSCULAR HEMOGLOBIN 31.5 pg (27.0-33.0); MEAN CORPUSCULAR HGB CONC 33.7 g/dl (32.0-36.5); MEAN CORPUSCULAR VOLUME 93.3 fl (80.0-96.0); MONO # 0.7 10^3/uL (0.0-0.8); MONO % 10.4 % (0.0-5.0); NEUTROPHILS # 5.3 10^3/uL (1.5-8.5); NEUTROPHILS % 74.6 % (36.0-66.0); PLATELET COUNT, AUTOMATED 211 10^3/uL (150-450); RED BLOOD COUNT 3.59 10^6/uL (4.30-6.10); WHITE BLOOD COUNT 7.1 10^3/uL (4.0-10.0)
[2019-04-12 05:53] LABS: BLOOD UREA NITROGEN 12 MG/DL (7-18); CALCIUM LEVEL 7.8 MG/DL (8.8-10.2); CARBON DIOXIDE LEVEL 27 MEQ/L (21-32); CHLORIDE LEVEL 103 MEQ/L (98-107); CREATININE FOR GFR 0.84 MG/DL (0.70-1.30); GLOMERULAR FILTRATION RATE > 60.0 (>49); GLUCOSE, FASTING 135 MG/DL (70-100); POTASSIUM SERUM 3.7 MEQ/L (3.5-5.1); SODIUM LEVEL 137 MEQ/L (136-145)
[2019-04-12 08:00] VITALS: BP 141/94
--- NOTE | 2019-04-12 08:09 | REP ---
Clinical: Status post pulmonary segmentectomy. Technique: PA and lateral. Comparison: 04/11/2019. Findings: Small left apical pneumothorax unchanged. Bilateral pleuroparenchymal changes including chronic changes with superimposed infiltrates remain stable. No effusion. This time and cardiac silhouette unchanged. Impression: 1. Small left apical pneumothorax unchanged. 2. Stable bilateral pleuroparenchymal changes. Electronically Signed by Dean Valladares MD 04/12/2019 08:00 A
[2019-04-12 08:29] VITALS: BP 134/80
[2019-04-12] MEDS: ASPIRIN 325 MG TAB PO SCH (08:29)
[2019-04-12] MEDS: buPROPion **XL** TABLET 150MG (WELLBUTRIN XL) PO SCH (08:29)
[2019-04-12] MEDS: PANTOPRAZOLE 40MG TAB (PROTONIX) PO SCH (08:29)
[2019-04-12] MEDS: PRAVASTATIN 20 MG TAB PO SCH (08:29)
[2019-04-12] MEDS: HEPARIN SOD (PORCINE) 5000 UNITS/ML VIAL (J1644 PER 1000UNITS) SC SCH (08:30)
[2019-04-12] MEDS: DOCUSATE SODIUM 100 MG CAP PO SCH (08:30)
[2019-04-12] MEDS: MOM 30ML SUSPENSION UDC PO SCH (08:30)
[2019-04-12] MEDS ORDERED: DURA25DI3 TOP (08:40)
[2019-04-12] MEDS ORDERED: FURO40TA2 PO (08:40)
[2019-04-12] MEDS ORDERED: PERCOCET PO (08:40)
[2019-04-12] MEDS ORDERED: MOXI1TAB PO (08:55)
[2019-04-12] MEDS ORDERED: fentaNYL 25 MCG/HR PATCH TOP SCH (09:00)
[2019-04-12] MEDS ORDERED: FENTANYL REMOVAL DOCUMENTATION MISC XX SCH (09:00)
--- NOTE | 2019-04-12 10:30 | DSES ---
DATE OF ADMISSION: 04/06/2019 DATE OF DISCHARGE: 04/12/2019 DISCHARGE DIAGNOSES: 1. Small cell carcinoma stage IA final pathology showing all mediastinal nodes negative. 2. Postoperative day #6 status post posterior segmentectomy and mediastinal lymphadenectomy. 3. Hypertension. 4. Right midfield infiltrate. 5. Problematic pain control. Improved on discharge. HOSPITAL COURSE: Patient is a 61-year-old white male who was essentially asymptomatic and was being prepared for eye surgery when he underwent a chest x-ray which showed a left sided lung mass. CT scanning confirmed the lung mass which was only 1 cm. PET scanning showed the uptake in the left upper lobe lesion posteriorly. Biopsy is undertaken which showed small cell carcinoma. Because there was no other uptake on the PET scan and since this was a single solitary small peripheral lesion we decided to offer him surgical intervention. He was taken to the operating room with the intension of doing a left upper lobectomy, however, his fissure was only rudimentary. I therefore decided to undertake a posterior segmentectomy. Pathology did not show any lymphangitic spread of the small cell carcinoma away from the tumor site in the lung parenchyma. Mediastinal nodes were negative. He had a postoperative course which was significant for difficulty with pain control. While he responded to the epidural boluses he still had a considerable amount of pain. Chest tubes were finally removed on the fourth postoperative day. He was transitioned to oral pain medication. He was held one more day for augmentation of his pain control. Throughout his hospital course he developed a right sided infiltrate, however, he had no fever, chills, or sweats and his white count remained low. He is being discharged today on his home medications including: aspirin 325 mg every day, bupropion 300 mg every day, diltiazem 240 mg every day, hydroxyzine 10 mg by mouth as needed, pravastatin 20 mg every day, nitroglycerin 0.4 mg sublingual as needed chest pain along with fentanyl patch at 25 mcg every 72 hours, Percocet 5/325 one every 4 hours as needed pain, Lasix 40 mg every day and moxifloxacin 400 mg every day times 7 days. Patient will return to see me in 1 week with a chest x-ray. His discharge white count is 7.1 with a hemoglobin and hematocrit of 11.3 and 33.5 and a platelet count of 211. Discharge electrolytes are normal with a BUN and creatinine of 12 and 0.84. Chest x-ray still shows the lung fully expanded to chest wall with infiltrate in the right mid lung field.
[2019-04-12 11:40] VITALS: O2SAT 80
== END 2019-04-12 15:15 | disposition home or self-care (01) | DRG 121 ==
LOC: M OR 06:51 → M ICU 14:26 → M PCU 04-09 11:00
PROVIDERS: ADMIT Thoracic Surgery (Cardiothoracic Vascular Surgery); ATTEND Thoracic Surgery (Cardiothoracic Vascular Surgery)
PROC: 07B70ZZ Excision of Thorax Lymphatic, Open Approach (ICD-10-PCS; 2019-04-06)
PROC: 0BBG0ZZ Excision of Left Upper Lung Lobe, Open Approach (ICD-10-PCS; principal; 2019-04-06 08:30)
DX: C34.12 Malignant neoplasm of upper lobe, left bronchus or lung (principal); J95.812 Postprocedural air leak; I10 Essential (primary) hypertension; I25.10 Atherosclerotic heart disease of native coronary artery without angina pectoris

== ENCOUNTER → 2019-04-19 | Outpatient (CLI) | payer BC, OTHER ==
[~2019-04-19] MED LIST changes: +DURA25DI3 TOP; +FURO40TA2 PO; -LR 1,000 ML IV ONE; +MOXI1TAB PO; -MUPIROCIN 2% OINT 22 GM TUBE TOP ONE; +PERCOCET PO; -ceFAZolin SOD 2 GM in IV 1 EA IV ONE
--- NOTE | 2019-04-19 10:01 | REPPI ---
Clinical: Upper lobe malignancy. Technique: PA and lateral. Comparison: 04/12/2019. Findings: Irregular area of opacity along the left suprahilar mediastinum with underlying postsurgical changes are similar to prior examination. The cardiac silhouette is normal. Previously suggested bilateral perihilar opacities along with right mid lung and left sided infiltrates appear to have improved. No obvious new acute consolidation, effusion, or pneumothorax. Lateral left fifth rib fracture is now identified and was previously obscured on multiple examinations due to overlying chest tubes, wires, and positioning. In retrospect fracture could be initially on 04/06/2019. Impression: 1. Chronic stable changes. 2. Previous bilateral infiltrates and previous left apical pneumothorax appears to have essentially resolved. Electronically Signed by Dean Valladares MD 04/19/2019 09:52 A
== END ==
LOC: M PLAIMG 09:18
PROVIDERS: ATTEND Thoracic Surgery (Cardiothoracic Vascular Surgery)
DX: C34.12 Malignant neoplasm of upper lobe, left bronchus or lung (principal)

== ENCOUNTER → 2019-04-26 | Outpatient (CLI) | payer BC, OTHER ==
[~2019-04-26] MED LIST changes: +LIDOCAINE 1% MDV 20ML VIAL As Ordered ONE; +MIDAZOLAM INJ 2 MG/2 ML VIAL (J2250) As Ordered ONE; +ceFAZolin 1GM INJ (J0690 PER 500MG) As Ordered ONE; +diphenhydrAMINE INJ 50MG/ML VIAL (J1200) As Ordered ONE; +fentaNYL 100 MCG/2 ML INJECTION (J3010) As Ordered ONE
--- NOTE | 2019-04-26 14:32 | IRHP ---
[facility] IR Pre-Procedure H & P General Date of Service: Apr 26, 2019 Procedure: Same Day Surgery Interval History and Physical I have seen the patient and reviewed last H & P performed within 30 days. There is no significant interval change. History of Present Illness Chief Complaint The patient is a 63-year-old male admitted with a reason for visit of Port Placement. PRE-PROCEDURE DIAGNOSIS: cancer HEART: normal rate LUNGS: normal breathing at rest. ASA Classification ASA Classification: III-Severe systemic dis. Mallampati Score: II NPO: Yes Problems with prior sedation: No Obstructive Sleep Apnea: Yes Plan moderate sedation Allergies Coded Allergies: No Known Allergies (Unverified , 04/06/19) Home Medications Scheduled Aspirin (Aspirin), 325 MG PO DAILY, (Reported) Bupropion HCl (Bupropion Xl), 300 MG PO DAILY, (Reported) Diltiazem HCl (Diltiazem 24Hr ER), 240 MG PO DAILY, (Reported) Fentanyl (Duragesic), 25 MCG TOP Q72H Hydroxyzine HCl (Hydroxyzine HCl), 10 MG PO PRN, (Reported) Pravastatin Sodium (Pravastatin Sodium), 20 MG PO DAILY, (Reported) Scheduled PRN Nitroglycerin (Nitroglycerin), 0.4 MG SL PRN PRN for CHEST PAIN, (Reported) Oxycodone/Acetaminophen (Oxycodone-Acetaminophen 5-325), 1 TAB PO Q4HP PRN for MODERATE PAIN (PS 5-7) Discontinued Medications Furosemide (Furosemide), 40 MG PO DAILY Discontinued Reason: Pt states not taking Moxifloxacin HCl (Moxifloxacin HCl), 400 MG PO DAILY Discontinued Reason: Pt states not taking VS, I&O, 24H, Fishbone Vital Signs/I&O Vital Signs Date Time Temp Pulse Resp B/P (MAP) Pulse Ox O2 Delivery O2 Flow Rate FiO2 04/26/19 14:03 98.5 78 18 95 Room Air NERY ALEXANDER MD Apr 26, 2019 14:32
[2019-04-26 16:58] VITALS: BP 112/64
--- NOTE | 2019-04-27 13:23 | REP ---
IR Ultrasound and fluoroscopy-guided port placement. IR Ultrasound of the neck. IR Moderate sedation. Clinical information: Lung cancer. Physician: Dr. Grey. Procedure: The patient was advised of the benefits, risks, and alternatives of the procedure and informed consent was obtained. A time-out was performed with verification of the patient's name, MRN, site of procedure and type of procedure to be performed. The patient was positioned in the supine position on the angiographic table. The site was prepped and draped in the usual sterile fashion. Moderate sedation was performed by the physician including the presence of an independent trained observer who assisted and monitored the patient's level of consciousness and physiologic status. Following the administration of fentanyl and Versed, the physician spent 45 minutes of continuous face to face time with the patient. Ultrasound of the neck reveals a patent and compressible right internal jugular vein. A pensionholder information clerk radiograph reveals hilar mass. The neck and anterior chest wall were anesthetized with lidocaine. The right internal jugular vein was accessed using a microintroducer needle under ultrasound guidance, via a lateral approach. An 018 wire was advanced into the superior vena cava, the needle was removed and a microsheath was placed. An Amplatz wire was then passed into the inferior vena cava. An incision at the internal jugular vein access site and anterior chest wall were made using a scalpel. An incision was made at the anterior chest wall. A small pocket was created using a combination of blunt and sharp dissection. A tunneling device was then used to pass the catheter from the pocket to the neck puncture site. An 8-[employer] Smart power port was then positioned in the pocket. The catheter was then measured and cut. The introducer sheath was exchanged for a peel-away sheath. The catheter was passed through the peel-away sheath into the internal jugular vein and the peel-away sheath was removed. The port tip was positioned at the cavoatrial junction. The port was then accessed with a Mckay needle. The port flushes and aspirates well. The puncture site in the neck was closed. The chest wall incision was then closed with 2-0 Vicryl and 4-0 Monocryl. Glue and Steri-Strips were applied. A sterile dressing was then applied. The patient tolerated the procedure well and was returned to the PRU in stable condition. Estimated blood loss: <5 ml. Complications: None. Conclusion: 1. Successful placement of an 8-[place] Smart power port via the right internal jugular vein. The port is ready for immediate use. 2. Patient to follow up in IR clinic in 2 weeks. Thank you for this referral. Electronically Signed by Michelle Grey MD 04/27/2019 01:21 P
== END ==
LOC: M IRPRO 13:24
PROVIDERS: ATTEND Radiology Diagnostic Radiology
DX: C34.90 Malignant neoplasm of unspecified part of unspecified bronchus or lung (principal)
CPT/HCPCS: 36561; 99152; 99153; C1769; C1788; C1894; J0690; J1200; J1642; J1644; J2250; J3010

== ENCOUNTER → 2019-05-08 | Outpatient (POV) | payer BC, OTHER ==
[~2019-05-08] VITALS: Ht 177.8 cm; Wt 77.3 kg
[~2019-05-08] MED LIST changes: +LIDO2.5C15 TOP; -LIDOCAINE 1% MDV 20ML VIAL As Ordered ONE; -MIDAZOLAM INJ 2 MG/2 ML VIAL (J2250) As Ordered ONE; +OLAN10TA2 PO; +ONDA8TAB10 PO; +PROC10TA4 PO; -ceFAZolin 1GM INJ (J0690 PER 500MG) As Ordered ONE; -diphenhydrAMINE INJ 50MG/ML VIAL (J1200) As Ordered ONE; -fentaNYL 100 MCG/2 ML INJECTION (J3010) As Ordered ONE
[2019-05-08 11:35] VITALS: BP 132/82
--- NOTE | 2019-05-10 07:34 | IRPN ---
[facility] IR Progress Note IR Progress Note DATE: May 08, 2019 FOLLOW-UP: Status post port placement. No fevers or chills. No pain or discharge at site. Functioning well. ON EXAMINATION: Port site appears to be healing well. No redness, tenderness, fluctuance or discharge. IMPRESSION: Port site healing well. No further scheduled follow-up necessary, unless initiated by patient and or referring provider. Thank you for this referral Allergies Coded Allergies: No Known Allergies (Unverified , 04/06/19) VS,Fishbone, I+O VS, Fishbone, I+O Vital Signs Date Time Temp Pulse Resp B/P (MAP) Pulse Ox O2 Delivery O2 Flow Rate FiO2 05/08/19 11:35 97.1 78 18 132/82 (99) 94 Room Air NERY ALEXANDER MD May 10, 2019 07:34
== END ==
LOC: M IRPOV 11:14
PROVIDERS: ATTEND Radiology Diagnostic Radiology
DX: Z45.2 Encounter for adjustment and management of vascular access device (principal)

== ENCOUNTER → 2019-06-07 | Outpatient (CLI) | payer BC, OTHER ==
--- NOTE | 2019-06-07 09:27 | REPPI ---
REASON: History of carcinoma of the lung. COMPARISON: Multiple, the latest 04/19/2019. Since the prior exam a Mediport device has been placed, the tip is in the superior vena cava. Cardiomediastinal silhouette is otherwise unremarkable. The heart is not enlarged. There is no significant change in the appearance of the lung henderson. No acute patchy parenchymal opacities or pleural effusions have developed. The osseous structures are stable and intact. IMPRESSION: Stable chest. No evidence of acute cardiopulmonary disease. Mediport device as described above. Electronically Signed by Emir Banks DO 06/07/2019 11:09 A
== END ==
LOC: M PLAIMG 08:52
PROVIDERS: ATTEND Thoracic Surgery (Cardiothoracic Vascular Surgery)
DX: C34.12 Malignant neoplasm of upper lobe, left bronchus or lung (principal)

== ENCOUNTER → 2019-07-30 | Outpatient (CLI) | payer BC, OTHER ==
[~2019-07-30] MED LIST changes: +HYDR-3363 PO; +PROHANCE 279.3MG/ML 15ML VIAL As Ordered ONE
--- NOTE | 2019-07-30 14:19 | REPVR ---
PROCEDURE INFORMATION: Exam: MR Head Without and With Contrast Exam date and time: 07/30/2019 2:08 PM Age: 64 years old Clinical indication: Condition or disease; History of cancer (specify primary cancer site): ; Primary cancer: [facility]; Additional info: Early stage small cell lung cancer; Restaging TECHNIQUE: Imaging protocol: MR of the head without and with intravenous contrast. Contrast material: PROHANCE; Contrast volume: 15 ml; Contrast route: IV; COMPARISON: MRI-Brain W/O FOLL BY WITH 03/30/2019 2:34 PM FINDINGS: Brain: There is no acute intracranial hemorrhage, cerebral edema, or midline shift. No restricted diffusion is present to suggest acute infarction. Multiple small foci of increased T2 and FLAIR signal within the periventricular and subcortical white matter are present. This is nonspecific but could represent early chronic microangiopathic ischemic changes, the sequela of migraine headaches, demyelinating disease, prior trauma, vasculitis, or Lyme disease. No enhancing lesions were identified after the administration of contrast. Ventricles: No hydrocephalus. Bones/joints: Unremarkable. Sinuses: Normal as visualized. No acute sinusitis. Mastoid air cells: Normal as visualized. No mastoid effusion. Orbits: Unremarkable. Soft tissues: Unremarkable. IMPRESSION: 1. No acute abnormality. 2. Chronic findings as discussed above. Electronically signed by: Jeramy Britton On 07/30/2019 14:19:06 PM
== END ==
LOC: M RAD 11:32
PROVIDERS: ATTEND Internal Medicine Medical Oncology
DX: C34.91 Malignant neoplasm of unspecified part of right bronchus or lung (principal)
CPT/HCPCS: 70553; A9576; J1642